=== PATIENT | male | born 1975 | race Caucasian/White ===

== ENCOUNTER 2018-04-26 20:41 | Emergency (ER) | payer MEDICAID, OTHER ==
[2018-04-26 20:54] VITALS: BP 134/87
[2018-04-26] MEDS ORDERED: diPHENhydraMINE PO* 50 MG PO ONE (21:01)
--- NOTE | 2018-04-26 21:01 | UC ---
Skin Complaint HPI - HPI Summary HPI Summary: painful and itching blistering red rash both forearms began yesterday after doing lawn work---no relief with calamine lotion - History of Current Complaint Chief Complaint: [facility] Time Seen by Provider: 04/26/18 20:55 Stated Complaint: RASH Hx Obtained From: Patient Onset/Duration: Sudden Onset, Lasting Days - 2, Still Present, Worse Since - today Timing: Constant Pain Intensity: 6 Pain Scale Used: 0-10 Numeric Location: Discrete Character: Pruritus, Pain, Redness, Raised Aggravating Factor(s): Touch, Other - heat Alleviating Factor(s): Nothing Associated Signs & Symptoms: Positive: Negative Related History: Possible Reaction to: Environmental Exposure - Allergy/Home Medications Allergies/Adverse Reactions: Allergies Allergy/AdvReac Type Severity Reaction Status Date / Time No Known Allergies Allergy Verified 04/26/18 20:58 Review of Systems Constitutional: Negative Skin: Other - blistering itchy painful red hives--both forearms Eyes: Negative ENT: Negative Respiratory: Negative Cardiovascular: Negative Gastrointestinal: Negative Genitourinary: Negative Motor: Negative Neurovascular: Negative Musculoskeletal: Negative Neurological: Negative Psychological: Negative Is Patient Immunocompromised?: No All Other Systems Reviewed And Are Negative: Yes PMH/Surg Hx/FS Hx/Imm Hx Previously Healthy: Yes - Surgical History Surgical History: Yes Surgery Procedure, Year, and Place: VASECTOMY - Family History Known Family History: Positive: None - Social History Occupation: Employed Full-time Lives: With Family Alcohol Use: Daily Substance Use Type: None Smoking Status (MU): Light Every Day Tobacco Smoker Type: Cigarettes Household Exposure Type: Cigarettes Physical Exam Triage Information Reviewed: Yes Appearance: Well-Appearing, Well-Nourished, Pain Distress Vital Signs: Initial Vital Signs Temp 98.5 F 04/26/18 20:48 Pulse 102 04/26/18 20:48 Resp 16 04/26/18 20:48 BP 134/87 04/26/18 20:48 Pulse Ox 97 04/26/18 20:48 Vital Signs Reviewed: Yes Eye Exam: Normal Eyes: Positive: Conjunctiva Clear ENT Exam: Normal ENT: Positive: Normal ENT inspection, Hearing grossly normal. Negative: Trismus , Muffled voice, Hoarse voice Dental Exam: Normal Neck exam: Normal Neck: Positive: Supple, Nontender Respiratory Exam: Normal Respiratory: Positive: Chest non-tender, No respiratory distress, No accessory muscle use Cardiovascular Exam: Normal Cardiovascular: Positive: RRR, Pulses Normal, Brisk Capillary Refill Abdominal Exam: Normal Musculoskeletal Exam: Normal Musculoskeletal: Positive: Strength Intact, ROM Intact, No Edema Neurological Exam: Normal Neurological: Positive: Alert, Muscle Tone Normal Psychological Exam: Normal Psychological: Positive: Normal Response To Family Skin Exam: Other Skin: Positive: Other - both forearms---raised red vesicles with hives-- Course/Dx - Course Course Of Treatment: cool compress, benadryl, prednisone, follow with pcp rpn - Diagnoses Provider Diagnoses: contact dermititis both forearms Discharge - Sign-Out/Discharge Documenting (check all that apply): Patient Departure All imaging exams completed and their final reports reviewed: No Studies - Discharge Plan Condition: Stable Disposition: HOME Prescriptions: predniSONE TAB* [Deltasone 10 MG TAB*] 10 mg PO DAILY #30 tab Patient Education Materials: Diphenhydramine (By mouth), Contact Dermatitis (ED ), Poison Evelyn (ED), Cold Compress or Soak (ED) Referrals: Kuldip Stephenson MD [Primary Care Provider] - If Needed - Billing Disposition and Condition Condition: STABLE Disposition: Home - Attestation Statements Provider Attestation: Per institutional requirements, I have reviewed the chart, however, I was not consulted specifically or made aware of this patient by the midlevel provider. I did not personally evaluate, interact with , or disposition this patient.
[2018-04-26] MEDS ORDERED: predniSONE TAB* 20 MG PO ONE (21:02)
== END 2018-04-26 21:15 | disposition home or self-care (01) ==
LOC: UCEAST 20:41
DX: L25.9 Unspecified contact dermatitis, unspecified cause (principal); F17.210 Nicotine dependence, cigarettes, uncomplicated
CPT/HCPCS: 99202; A9270-GY; G0463; J7512

== ENCOUNTER 2018-12-10 09:49 | Emergency (ER) | payer OTHER ==
[2018-12-10 10:04] VITALS: BP 137/92
--- NOTE | 2018-12-10 10:52 | UC ---
Skin Complaint HPI - HPI Summary HPI Summary: 43 yo male presents with blister-like rash to left arm, right arm, left lower abdomen, and left cheek. He tells me that 4 days ago he was outside doing a lot of weed and tree trimming. They next day developed some red rashes with blistering. He has had this before and thinks he got into poison evelyn or hogweed. Has been applying an OTC cream with some relief, but today noticed some blistering on his left cheek that concerned him - prompting his visit to . Denies fever, swelling, or difficulty breathing - History of Current Complaint Chief Complaint: [facility] Time Seen by Provider: 12/10/18 10:51 Stated Complaint: RASH Hx Obtained From: Patient Onset/Duration: Gradual Onset Onset Severity: Mild Current Severity: Mild Pain Intensity: 1 Pain Scale Used: 0-10 Numeric - Allergy/Home Medications Allergies/Adverse Reactions: Allergies Allergy/AdvReac Type Severity Reaction Status Date / Time No Known Allergies Allergy Verified 12/10/18 10:05 PMH/Surg Hx/FS Hx/Imm Hx - Additional Past Medical History Additional PMH: None - Surgical History Surgical History: Yes Surgery Procedure, Year, and Place: VASECTOMY - Family History Known Family History: Positive: None - Social History Occupation: Employed Full-time Lives: With Family Alcohol Use: Daily Substance Use Type: None Smoking Status (MU): Light Every Day Tobacco Smoker Type: Cigarettes Household Exposure Type: Cigarettes Review of Systems All Other Systems Reviewed And Are Negative: Yes Constitutional: Positive: Negative Skin: Positive: Rash Eyes: Positive: Negative ENT: Positive: Negative Respiratory: Positive: Negative Cardiovascular: Positive: Negative Neurovascular: Positive: Negative Neurological: Positive: Negative Psychological: Positive: Negative Physical Exam - Summary Physical Exam Summary: GENERAL: NAD. WDWN. No pain distress. SKIN: LEFT forearm with small cluster of 2-3mm blisters with mild erythema at bases. Similar appearing lesions on right forearm and left lower abdomen. Left cheek superior aspect with single 3mm blister with mild erythema. NECK: Supple. Nontender. No lymphadenopathy. CHEST: No accessory muscle use. Breathing comfortably and in no distress. CV: Pulses intact. Cap refill <2seconds NEURO: Alert. PSYCH: Age appropriate behavior. Triage Information Reviewed: Yes Vital Signs: Initial Vital Signs Temp 98 F 12/10/18 10:02 Pulse 76 04/18/19 10:02 Resp 17 12/10/18 10:02 BP 137/92 12/10/18 10:02 Pulse Ox 100 12/10/18 10:02 Vital Signs Reviewed: Yes Course/Dx - Course Course Of Treatment: Suspect contact dermatitis to hogweed or similar plant. No lesions appear infected. Advised to continue apply OTC cream and cool pack/ice and will rx for prednisone. - Diagnoses Provider Diagnosis: Contact dermatitis Discharge - Sign-Out/Discharge Documenting (check all that apply): Patient Departure All imaging exams completed and their final reports reviewed: No Studies - Discharge Plan Condition: Stable Disposition: HOME Prescriptions: predniSONE TAB* [Deltasone 20 MG TAB*] 40 mg PO DAILY #10 tab Patient Education Materials: Poison Evelyn (ED), Cold Compress or Soak (ED) Referrals: Kuldip Stephenson MD [Primary Care Provider] - Additional Instructions: If you develop a fever, shortness of breath, chest pain, new or worsening symptoms - please call your PCP or go to the ED. Your blood pressure was high at todays visit. Please see your primary provider within 4 weeks for recheck and re-evaluation. Continue applying the gel that you have been using. If the area around your eye worsens - please be rechecked as soon as possible - Billing Disposition and Condition Condition: STABLE Disposition: Home
== END 2018-12-10 11:11 | disposition home or self-care (01) ==
LOC: UCEAST 09:49
DX: L25.5 Unspecified contact dermatitis due to plants, except food (principal); F17.210 Nicotine dependence, cigarettes, uncomplicated
CPT/HCPCS: 99212; G0463